=== PATIENT | male | born 1985 ===

== ENCOUNTER 2019-06-18 12:15 | Outpatient (REF) | payer MEDICAID, SELFPAY ==
[2019-06-18 18:40] LABS: TSH (W/Ref FT4) 2.34 uIU/mL (0.36-3.74)
[2019-06-23 11:44] LABS: Testosterone, Free 9.11 ng/dL (4.85-19.0); Testosterone, Total 314 ng/dL (240-950)
== END 2019-06-18 12:35 ==
LOC: NCHCN 12:15
PROVIDERS: PCP Nurse Practitioner Family; Visit Provider Nurse Practitioner Family
DX: R53.83 Other fatigue (principal); R68.82 Decreased libido
CPT/HCPCS: 84402; 84403; 84443